=== PATIENT | female | born 1995 | race Two or more races ===

== ENCOUNTER 2017-04-06 08:58 | Emergency (ER) | payer MEDICAID ==
[~2017-04-06] VITALS: Ht 157.5 cm; Wt 58.1 kg
[~2017-04-06 08:58] MED LIST: BENZ200C3 PO; CEPH-37 PO; IBUP800T24 PO
[2017-04-06 09:30] VITALS: BP 112/41
[2017-04-06] MEDS ORDERED: methylPREDNISolone SOD SUCC 125 MG/2 ML VL IM ONE (09:45)
[2017-04-06] MEDS ORDERED: TETANUS-DIPTH-ACEL PERTUSSIS 0.5ML SYRG IM ONE (09:45)
== END 2017-04-06 10:06 | disposition home or self-care (01) ==
LOC: ER 09:01
DX: T78.40XA Allergy, unspecified, initial encounter (principal); M79.89 Other specified soft tissue disorders; J45.909 Unspecified asthma, uncomplicated; F17.210 Nicotine dependence, cigarettes, uncomplicated; Z23 Encounter for immunization; X58.XXXA Exposure to other specified factors, initial encounter
CPT/HCPCS: 90471; 90715; 96372; 99284; J2930; L3260

== ENCOUNTER 2019-05-06 00:52 | Emergency (ER) | payer MEDICAID ==
[~2019-05-06] VITALS: Ht 157.5 cm; Wt 68.0 kg
[2019-05-06 01:20] VITALS: BP 106/57
== END 2019-05-06 03:20 | disposition left against medical advice (07) ==
LOC: ER 00:55
DX: S90.31XA Contusion of right foot, initial encounter (principal); Z53.21 Procedure and treatment not carried out due to patient leaving prior to being seen by health care provider; X58.XXXA Exposure to other specified factors, initial encounter; Y93.89 Activity, other specified; Y92.89 Other specified places as the place of occurrence of the external cause; Y99.8 Other external cause status
CPT/HCPCS: 73620

== ENCOUNTER 2024-09-14 16:07 | Emergency (ER) | payer MEDICAID, OTHER ==
[~2024-09-14] VITALS: Ht 157.5 cm; Wt 79.2 kg
[~2024-09-14 16:07] MED LIST changes: +IBUP-1456 PO; -IBUP800T24 PO; +TRAM50TA2 PO
[2024-09-14 16:46] VITALS: BP 109/75; PULSE 85; RESP 16; TEMP 98.4; O2SAT 97
[2024-09-14] MEDS ORDERED: PENI500T2 PO (17:12)
[2024-09-14] MEDS ORDERED: PROM1SOL4 PO (17:12)
[2024-09-14] MEDS ORDERED: IBUP-1455 PO (17:12)
== END 2024-09-14 17:18 | disposition home or self-care (01) ==
LOC: ER 16:07
DX: J02.9 Acute pharyngitis, unspecified (principal); R05.9 Cough, unspecified; M79.18 Myalgia, other site; F41.9 Anxiety disorder, unspecified; F32.A Depression, unspecified; F17.210 Nicotine dependence, cigarettes, uncomplicated; J45.909 Unspecified asthma, uncomplicated; Z79.899 Other long term (current) drug therapy

== ENCOUNTER 2025-10-21 18:56 | Emergency (ER) | payer MEDICAID ==
[~2025-10-21] VITALS: Ht 157.5 cm; Wt 74.3 kg
[~2025-10-21 18:56] MED LIST changes: +IBUP-1455 PO; +PENI500T2 PO; +PROM1SOL4 PO
--- NOTE | 2025-10-21 20:05 | ED.PDOC ---
HPI (NEURO) HPI Comments 29-year-old female who came to ER for headaches. Patient has history of pituitary tumor and migraine headaches. Patient states she usually gets migraine headaches about 2 to 3 times a year. Patient currently not taking any medications for migraines. States for the past 2 days she has been experiencing occipital headaches/frontal headaches. Very typical for her migraines. Patient was noted by co-worker earlier that she was staring blankly the wall and she was advised to go to the emergency room Chief Complaint: Headache Time Seen by MD: 20:05 Primary Care Provider: LAURIE Rodriguez Notes: Nurses Notes Information Source: Patient Mode of Arrival: Ambulatory Past Medical History PAST MEDICAL HISTORY: Anxiety, Asthma, Depression Past Medical History (Other): Migraine headaches. Pituitary tumor Surgical History: Denies all surgeries POT PUNCHER History: No Pertinent POT PUNCHER History Family History Family History: No family hx of DM, No family hx of HTN Social History Smoker: Cigarettes Alcohol: Occasionally Drugs: Denies Drug Use Lives In: Home Constitutional: denies: chills, diaphoresis, fatigue, fever, malaise, sweats, weakness, others EENTM: denies: blurred vision, double vision, ear bleeding, ear discharge, ear drainage, ear pain, ear ringing, eye pain, eye redness, hearing loss, mouth pain, mouth swelling, nasal discharge, nose bleeding, nose congestion, nose pain, photophobia, tearing, throat pain, throat swelling, voice changes, others Respiratory: denies: cough, hemoptysis, orthopnea, SOB at rest, shortness of breath, SOB with excertion, stridor, wheezing, others Cardiovascular: denies: chest pain, dizzy spells, diaphoresis, Dyspnea on ex ertion, edema, irregular heart beat, left arm pain, lightheadedness, palpitations, PND, syncope, others Gastrointestinal: denies: abdomen distended, abdominal pain, blood streaked bowels, constipated, diarrhea, dysphagia, difficulty swallowing, hematemesis, melena, nausea, poor appetite, poor fluid intake, rectal bleeding, rectal pain, vomiting, others Genitourinary: denies: abnormal vagina bleeding, burning, dyspareunia, dysuria, flank pain, frequency, hematuria, incontinence, pain, , vagina discharge, urgency, others Neurological: reports: headache; denies: dizziness, fainting, left sided numbness, left sided weakness, numbness, paresthesia, pre-existing deficit, right sided numbness, right sided weakness, seizure, speech problems, tingling, tremors, weakness, others Musculoskeletal: denies: back pain, gout, joint pain, joint swelling, muscle pain, muscle stiffness, neck pain, others Integumetry: denies: bruises, change in color, change in hair/nails, dryness, laceration, lesions, lumps, rash, wounds, others Allergic/Immunocompromised: denies: Difficulty Healing, Frequent Infections, Hives, Itching, others Hematologic/Lymphatic: denies: anemia, blood clots, easy bleeding, easy bruising, swollen glands, others Endocrine: denies: excessive hunger, excessive sweating, excessive thirst, excessive urination, flushing, intolerance to cold, intolerance to heat, unexplained weight gain, unexplained weight loss, others Psychiatric: denies: anxiety, bipolar disorder, depression, hopeless, panic disorder, schizophrenia, sleepless, suicidal, others Physical Exam General Appearance: No Apparent Distress, Normal HEENT: Normal ENT Inspection, Pharynx Normal, TMs Normal Neck: Full Range of Motion, Non-Tender, Normal, Normal Inspection Respiratory: Chest Non-Tender, Lungs Clear, No Accessory Muscle Use, No Respiratory Distress, Normal Breath Sounds Cardiovascular: No Edema, No JVD, No Murmur, No Gallop, Normal Peripheral Pulses, Regular Rate/Rhythm Breast Exam: Deferred Gastrointestinal: No Organomegaly, Non Tender, No Pulsatile Mass, Normal Bowel Sounds, Soft Genitalia: Deferred Pelvic: Deferred Rectal: Deferred Extremities: No calf tenderness, Normal capillary refill, Normal inspection, Normal range of motion, Non-tender, No pedal edema Musculoskeletal : Apperance: Normal Neurologic: Alert, dormitory maid II-XII nml as Tested, No Motor Deficits, Normal Affect, Normal Mood, No Sensory Deficits Cerebellar Function: Normal Reflexes: Normal Skin: Dry, Normal Color, Warm Lymphatic: No Adenopathy Was a procedure done? Was a procedure done?: No Differential Diagnosis (SZ) Headache: Cluster, Migraine, Sinusitis X-Ray, Labs, Meds, VS Vital Signs Date Time Temp Pulse Resp B/P (MAP) Pulse Ox O2 Delivery O2 Flow Rate FiO2 10/21/25 18:57 98.5 77 18 146/65 98 98.5 Time of 1ST Reevaluation: 20:02 Reevaluation 1ST: Unchanged Patient Education/Counseling: Diagnosis, Treatment Family Education/Counseling: No Family Present Comments This is a patient who has a history of migraine headaches. She came to us with a familiar headache that she has from her previous migraines. There has been no change. She says she does see a doctor for the migraine as a result they discovered pituitary tumor. However as far as the migraine she is still waiting for a neurologist to manage her migraine. She has no neurologic findings. Patient eloped before I can reassess her responsiveness to the treatment. Departure 1 Departure Time of Disposition: 22:34 Impression: Primary Impression: Recurrent headache Disposition: 07 LEFT AWOL/ELOPED Condition: Other (Unknown) Critical Care Note Critical Care Time?: No Stability Stability form required: No Heart Score Heart Score: Heart Score Response (Comments) Value History N/A 0 EKG N/A 0 Age N/A 0 Risk Factors N/A 0 Troponin N/A 0 Total 0 I personally scribed for MANDEEP BURGER MD ([email or web address]) on 10/21/25 at 20:05. Electronically submitted by Sesar Reynolds ([email or web address]). MANDEEP BURGER MD Oct 21, 2025 20:05
[2025-10-22 00:21] VITALS: BP 150/80; PULSE 89; RESP 16; TEMP 97.8; O2SAT 99
[2025-10-22] MEDS: HYDROcodone-ACET 5/325MG TAB PO ONE ×2 (00:41→03:10)
== END 2025-10-22 03:17 | disposition left against medical advice (07) ==
LOC: ER 18:56
DX: G43.909 Migraine, unspecified, not intractable, without status migrainosus (principal); F17.210 Nicotine dependence, cigarettes, uncomplicated; J45.909 Unspecified asthma, uncomplicated; F41.9 Anxiety disorder, unspecified; F32.A Depression, unspecified; Z98.890 Other specified postprocedural states